=== PATIENT | male | born 1970 | race Caucasian/White ===

== ENCOUNTER → 2023-07-26 15:07 | Outpatient (REF) | payer OTHER, SELFPAY | LOC: RAD 15:07 | PROVIDERS: ATTENDING PHYSICIAN Internal Medicine Rheumatology; FAMILY PHYSICIAN Family Medicine Adult Medicine | DX: M06.4 Inflammatory polyarthropathy (principal); M10.9 Gout, unspecified; R76.8 Other specified abnormal immunological findings in serum | CPT/HCPCS: 72072; 72110 ==

== ENCOUNTER → 2023-08-01 09:24 | Outpatient (REF) | payer OTHER, SELFPAY | LOC: RAD 09:24 | PROVIDERS: ATTENDING PHYSICIAN Internal Medicine; FAMILY PHYSICIAN Family Medicine Adult Medicine | DX: Z87.891 Personal history of nicotine dependence (principal) | CPT/HCPCS: 76770 ==

== ENCOUNTER → 2024-05-26 18:13 | Outpatient (REF) | payer OTHER, SELFPAY | LOC: PAVMRI 18:13 | PROVIDERS: ATTENDING PHYSICIAN Physical Medicine & Rehabilitation; FAMILY PHYSICIAN Family Medicine Adult Medicine | DX: M75.42 Impingement syndrome of left shoulder (principal) | CPT/HCPCS: 73221 ==

== ENCOUNTER → 2024-12-29 13:45 | Outpatient (REF) | payer BC, OTHER, SELFPAY | LOC: RCS 13:45 | PROVIDERS: ATTENDING PHYSICIAN Internal Medicine; FAMILY PHYSICIAN Family Medicine Adult Medicine | DX: Z01.810 Encounter for preprocedural cardiovascular examination (principal); I95.9 Hypotension, unspecified; I10 Essential (primary) hypertension | CPT/HCPCS: 93306 ==

== ENCOUNTER → 2025-01-02 13:19 | Outpatient (REF) | payer BC, OTHER, SELFPAY | LOC: RCS 13:19 | PROVIDERS: ATTENDING PHYSICIAN Internal Medicine; FAMILY PHYSICIAN Family Medicine Adult Medicine | DX: Z01.810 Encounter for preprocedural cardiovascular examination (principal); I95.9 Hypotension, unspecified; I10 Essential (primary) hypertension | CPT/HCPCS: 93017; 93350 ==

== ENCOUNTER 2025-05-11 16:32 | Emergency (ER) | payer BC, OTHER, SELFPAY ==
[2025-05-11 16:36] VITALS: BP 118/86
--- NOTE | 2025-05-11 17:39 | ED.GENMED ---
History of Present Illness
General
Chief Complaint: Musculo-Skeletal Complaint
Source: patient
Time Seen by Provider: 05/11/25 17:25
History of Present Illness
History of Present Illness:
54-year-old male who just finished a course of Avelox for sinusitis a few days ago. He noted the gradual onset of right sided knee pain yesterday, worse with movement, described as feeling like it is behind the kneecap area. He denies recent
trauma or falls, fever, chills, redness, drainage, or other complaints. He tried to see his doctor today and was referred to the urgent care who then referred him to the emergency department for possible arthrocentesis. Patient is an infectious
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 He is not immunosuppressed, not a diabetic. He does have a history of gout.
Past History
Past History
ED Past Medical History: Other (Gout, AVN, hypertension, hyperlipidemia)
ED Past Surgical History: Orthopedic
Social History
Tobacco: Non-smoker
Alcohol: None
Drug: None
Personal:
Living: with family
Employment: Employed
Phy Exam
Physical Exam
Physical Exam:
GENERAL: Alert , in no apparent
EYES: pupils equal and round
NECK: Supple, moves easily
ENT: mmm.
CARDIAC: Regular rate and rhythm .
LUNGS: Clear breath sounds bilaterally, no acute respiratory distress, no wheezes/rales/rhonchi
NEUROLOGICAL: Alert and oriented, grossly nonfocal
SKIN: Warm and dry, skin intact.
MUSCULOSKELETAL: No edema, well perfused. 2+ DP pulse on R. There is a small R knee effusion, no overlying warmth/erythema/break in skin/fluctuance/crepitus. mild nonspec knee ttp. ROM preserved. (Pt in fact reports pain while extending knee,
not flexing.)
PSYCH: Normal and appropriate interaction.
Course
Orders/Labs/Results
Orders:
Orders
05/11/25 16:38
CR Knee- Right 4 Or More View* Urgent
Comment:
Reason For Exam: pain to right knee
05/11/25 16:38
05/11/25 16:38
Vital Signs
Initial and Last Documented VS:
Initial Vital Signs
Temp Pulse Resp BP Pulse Ox
98.7 F 81 20 118/86 99
05/11/25 16:36 05/11/25 16:36 05/11/25 16:36 05/11/25 16:36 05/11/25 16:36
Last Documented Vital Signs
Temp Pulse Resp BP Pulse Ox
98.7 F 81 20 118/86 99
05/11/25 16:36 05/11/25 16:36 05/11/25 18:28 05/11/25 16:36 05/11/25 17:43
*Pulse Oximetry
SaO2: 99
Oxygen Mode of Delivery: Room air
Update Note
Update Note:
Patient presents to the Emergency Department with right knee pain
Number and Complexity of Problems Addressed at the Encounter
� Chronic conditions affecting care:
� Acute Exacerbation and/or Progression of Chronic Illness:
� Differential Diagnosis includes: But not limited to septic arthritis, gout, nonspecific monoarticular inflammation, Lyme, etc. etc.
Amount and/or Complexity of Data to be Reviewed and Analyzed
� I performed an independent evaluation of and my interpretation is:
EKG:
CT:
Xrays:ikely old healed fracture of the distal diaphysis of the right femur.
No findings to suggest recent cortical fracture.
Possible small suprapatellar effusion.
Laboratory Studies:
Other:
� Review of other/old records reveals:
� Clinical information was obtained by an independent historian:
� Prescriptions/Medications Considered but not given:
� Further testing considered but not performed:
Risk of Complications and/or Morbidity or Mortality of Patient Management
� Social determinants of health affecting care:
� Discussion with other providers (PCP, Hospitalists, Consultants, etc):
� Escalation of care including admission/observation vs risk of discharge considered: Long d/w pt regarding r/b of various diagnostic approaches (ex arthrocentesis, ex labs) vs 'wait and see' and p resumptively treat with
steroids given likely dx of gout. He elects to observe closely, begin steroids (understanding r/b), and will f/u with pcp, obviously rted eula if changes/worsening.
Patient given copy of his x-ray report. He would prefer to take steroids that he has at home and does not need a prescription.
ED Attending Note
-
Portions of this chart may have been created with voice recognition software.� Occasional wrong word or��sound alike� substitutions may have occurred due to the inherent limitations of voice recognition software.
Discharge Plan
Departure
Patient Disposition: Home (Routine Discharge)
Date of Disposition: 05/11/25
Time of Disposition: 18:34
Patient with high blood pressure during this ER visit?: Yes
Condition: Good
Discharge Problem:
Acute knee pain
Instructions: BLOOD PRESSURE, Knee Pain (DC)
Prescriptions:
No Action
oxycodone 5 mg tablet
5 mg PO Q8H PRN (Reason: Pain) Qty: 10 0RF
Referrals:
UNKNOWN - PT DOES,NOT KNOW [Family Provider]
Activity Restrictions/Additional Instructions:
WE STRONGLY SUSPECT THAT YOU HAVE GOUT. PLEASE BEGIN THE STEROID TREATMENT YOU HAVE IN THE PAST. IF YOU DEVELOP PERSISTENT OR NEW PAIN, ANY FEVER, CHILLS, REDNESS, WARMTH, INCREASING SWELLING, DIFFICULTY WALKING, GET WORSE, DO NOT GET BETTER,
OR OTHER WORRISOME SIGNS, PLEASE RETURN TO THE ER IMMEDIATELY!
Interventions
Interventions:
*Risk Screen - Suicide Last Done: 05/11/25 16:33
*General Assessment Last Done: 05/11/25 16:36
*Neglect/Abuse Screening Last Done: 05/11/25 17:38
*ED COVID-19 Vaccine History Last Done: 05/11/25 17:38
*ED Influenza Vaccine History Last Done: 05/11/25 17:38
[facility] Fall Risk Assessment Tool Last Done: 05/11/25 18:23
ED-Musculoskeletal Assessment Last Done: 05/11/25 17:40
Discharge Date and Time
Print Language: ARMENIAN
[2025-05-11 18:44] VITALS: BP 119/85
== END 2025-05-11 18:45 | disposition home or self-care (01) ==
LOC: EMR 16:32
PROVIDERS: EMERGENCY PHYSICIAN Emergency Medicine
DX: M25.561 Pain in right knee (principal); I10 Essential (primary) hypertension; E78.5 Hyperlipidemia, unspecified; M10.9 Gout, unspecified
CPT/HCPCS: 99284; 73564